=== PATIENT | male | born 1995 | race Two or more races ===

== ENCOUNTER 2022-03-12 06:33 | Emergency (ER) | payer OTHER, SELFPAY ==
--- NOTE | ~2022-03-12 | XR_ITS ---
EXAMINATION: XR SHOULDER, RIGHT CLINICAL INFORMATION: Fracture, dislocation COMPARISON: None TECHNIQUE: Three views of the right shoulder. FINDINGS: The humeral head is well positioned over the intact glenoid. Glenohumeral joint space is normal. No arthritic deformity, fracture or subluxation. Acromioclavicular joint is normal. The subacromial space is normal. Scapula is unremarkable. No calcium deposition within rotator cuff tendons. The visualized portion of the right lung is normal. No evidence of rib fracture. XR/XR shoulder RT min 2V IMPRESSION: Normal right shoulder.
[2022-03-12 06:52] VITALS: BP 111/54; PULSE 79; RESP 16; TEMP 36.5; O2SAT 96; BMI 27.2
--- NOTE | 2022-03-12 07:10 | PC.NURSE ---
Addendum entered by Johann Thompson RN 03/12/22 07:22: pt reports that sometimes he feels the pain going down the back of his neck Original Note: pt reports 10/ R shoulder pain that kept him up most of the night. he said the pain started last night while lifting weights. he said 4 years ago his shoulder was dislocated while weight lifting but he did not seek medical attention, his friend popped it back in place. he denies any other pain/injury.
--- NOTE | 2022-03-12 07:54 | ED_ITS ---
HPI - Extremity Problem General Chief complaint: Extremity Injury, Upper <ALINA Gonzales Last Filed: 03/12/22 08:39> Stated complaint: shoulder pain <ALINA Gonzales Last Filed: 03/12/22 08:39> Time Seen by Provider: 03/12/22 07:47 <ALINA Gonzales Last Filed: 03/12/22 08:39> Source: patient <ALINA Gonzales Last Filed: 03/12/22 08:39> Mode of arrival: ambulatory <ALINA Gonzales Last Filed: 03/12/22 08:39> Limitations: no limitations <ALINA Gonzales Last Filed: 03/12/22 08:39> History of Present Illness HPI Narrative: 27 year old male with history of chronic right shoulder pains presents to the ER for acute on chronic pain after lifting weights. Patient reports 4 years ago he dislocated his shoulder and his friend put it back into place for him. Ever since then he has had issues with regaining full strength and range of motion. He was never evaluated by Physical therapy or Orthopedics. 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 He reports he was at the gym this morning when he was doing weightlifting he had some pain in his right shoulder. He can ordered and kept going. He reports that was low weights of 25 lb. When he got home he had worsening anterior shoulder pain, worse with palpation and movement. He reports movement in the hand and lower arm with sent pain to the shoulder. He denies any numbness, tingling or weakness. He has difficulty moving the arm at all. No chest pain or shortness of breath. <ALINA Gonzales - Last Filed: 03/12/22 08:39> MD Complaint: joint pain <ALINA Gonzales Last Filed: 03/12/22 08:39> Onset (ago): year(s) <ALINA Gonzales Last Filed: 03/12/22 08:39> Pain Consistency: intermittent <ALINA Gonzales Last Filed: 03/12/22 08:39> Location: right and upper extremity <ALINA Gonzales Last Filed: 03/12/22 08:39> Severity scale (1-10): 8 <ALINA Gonzales - Last Filed: 03/12/22 08:39> Quality: aching <ALINA Gonzales - Last Filed: 03/12/22 08:39> Radiation: distal <ALINA Gonzales - Last Filed: 03/12/22 08:39> Relieving factors: immobilization and rest <ALINA Gonzales - Last Filed: 03/12/22 08:39> Exacerbating factors: range of motion and palpation <ALINA Gonzales - Last Filed: 03/12/22 08:39> Associated symptoms: denies other symptoms <ALINA Gonzales - Last Filed: 03/12/22 08:39> Related Data Home medications: Previous Rx's Medication Instructions Recorded ibuprofen 600 mg tablet 600 mg PO Q8H PRN pain #20 tabs 03/12/22 <ALINA Gonzales - Last Filed: 03/12/22 08:39> Allergies/Adverse reactions: Allergies Allergy/AdvReac Type Severity Reaction Status Date / Time No Known Allergies Allergy Verified 03/12/22 06:58 <ALINA Gonzales - Last Filed: 03/12/22 08:39> Review of Systems Review of Systems: Yes all other systems are reviewed and are negative <ALINA Gonzales - Last Filed: 03/12/22 08:39> Physical Exam Vital Signs: Vital Signs: Last Vital Signs Temp 97.7 F 03/12/22 06:52 Pulse 67 03/12/22 08:10 Resp 16 03/12/22 06:52 BP 128/77 03/12/22 08:10 Pulse Ox 96 03/12/22 08:10 O2 Del Method 03/12/22 08:10 BMI result Body Mass Index 27.2 <ALINA Gonzales - Last Filed: 03/12/22 08:39> Vital Signs: Last Vital Signs Temp 97.7 F 03/12/22 06:52 Pulse 67 03/12/22 08:10 Resp 16 03/12/22 06:52 BP 128/77 03/12/22 08:10 Pulse Ox 96 03/12/22 08:10 O2 Del Method 03/12/22 08:10 BMI result Body Mass Index 27.2 <Redd Peck MD - Last Filed: 03/12/22 15:46> Appearance: Alert. Oriented X3. No acute distress. HEENT: normal inspection CVS: Normal heart rate and rhythm. Pulses normal. Respiratory: No respiratory distress. Skin: Skin warm and dry. Normal skin color. Normal skin turgor. No rashes. Extremities: right arm held in flexion and adduction, tenderness of the anterior shoulder. pain with abduction to 90 degrees both laterally and forward, positive empty can test. minimal posterior tenderness. Neuro: Oriented X 3. No motor deficit. No sensory deficit. 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 <ALINA Gonzlaes - Last Filed: 03/12/22 08:39> Course Course Course Narrative: 27-year-old male with history of shoulder dislocation in the past presents to the ER for evaluation of acute on chronic right-sided shoulder pain in the setting of lifting weights. X-ray today is normal. Exam is concerning for possible rotator cuff injury. Will placed in sling and have him follow-up with orthopedics. Will start ice and anti-inflammatories, rest. He will call orthopedics for further evaluation. <ALINA Gonzales - Last Filed: 03/12/22 08:39> Medical Decision Making Differential Diagnosis Differential Diagnoses: The differential diagnosis associated with the presentation includes <ALINA Gonzales - Last Filed: 03/12/22 08:39> Tendinitis, arthritis, rotator cuff injury, AC joint separation, muscle strain, muscle spasm, less likely dislocation, neuropathy <ALINA Gonzales - Last Filed: 03/12/22 08:39> Independent Interpretation I performed an independent interpretation of an: Plain X-Ray <ALINA Gonzales - Last Filed: 03/12/22 08:39> Interpretation: normal appearing shoulder <ALINA Gonzales Last Filed: 03/12/22 08:39> Radiology Impression Discussion of test interpretation with radiology: I have reviewed the radiologist's reading. <ALINA Gonzales Last Filed: 03/12/22 08:39> Radiologist Impression: IMPRESSION: Normal right shoulder. <ALINA Gonzales Last Filed: 03/12/22 08:39> Prescription Management I considered prescription management with: Pain Medication <ALINA Gonzales - Last Filed: 03/12/22 08:39> Attestation Attending Attestation: 27-year-old male presents for evaluation. I reviewed the PA note. Agree with assessment and plan as well as documentation. <Redd Peck MD - Last Filed: 03/12/22 15:46> Critical Care Time Critical Care Time Critical Care Time: No <ALINA Gonzales - Last Filed: 03/12/22 08:39> Discharge Plan Discharge Clinical Impression: Chronic shoulder pain <ALINA Gonzales - Last Filed: 03/12/22 08:39> Patient Disposition: Home, Self-Care <ALINA Gonzales - Last Filed: 03/12/22 08:39> Instructions: Shoulder Pain (ED) <ALINA Gonzales - Last Filed: 03/12/22 08:39> Additional Instructions: Your x-ray today was normal. Recommend wearing the sling for the next 2-3 days. Use ice and take the prescribed anti-inflammatory pain medication as directed. Rest. No heavy lifting. Follow up with Orthopedics for further evaluation and treatment. If you develop new or worsening symptoms call 911 or come back to the ER for further evaluation. <ALINA Gonzales - Last Filed: 03/12/22 08:39> Prescriptions: New ibuprofen 600 mg tablet 600 mg PO Q8H PRN (Reason: pain) Qty: 20 0RF <ALINA Gonzales - Last Filed: 03/12/22 08:39> Referrals: [facility] [Provider Group] <ALINA Gonzales - Last Filed: 03/12/22 08:39> Interventions: ED Discharge Assessment Last Done: 03/12/22 08:19 <ALINA Gonzales Last Filed: 03/12/22 08:39> Discharge Date/Time: 03/12/22 08:20 <ALINA Gonzales Last Filed: 03/12/22 08:39>
[2022-03-12 08:10] VITALS: BP 128/77; PULSE 67; O2SAT 96
--- NOTE | 2022-03-12 08:11 | PC.NURSE ---
pt cleared for discharge. sling applied, vss.
== END 2022-03-12 08:20 | disposition home or self-care (01) ==
PROVIDERS: Emergency Provider Emergency Medicine
DX: M25.511 Pain in right shoulder (principal)
CPT/HCPCS: 73030; 99283; 99284

== ENCOUNTER → 2022-03-22 14:28 | Outpatient (BNVA) | payer OTHER, SELFPAY | PROVIDERS: Visit Provider Physician Assistant | DX: M25.311 Other instability, right shoulder (principal) | CPT/HCPCS: 99202 ==

== ENCOUNTER 2022-04-09 14:22 | Outpatient (REF) | payer OTHER, SELFPAY ==
--- NOTE | ~2022-04-09 | FL_ITS ---
EXAMINATION: XR ARTHROGRAM SHOULDER, RIGHT CLINICAL INFORMATION: Right shoulder trauma. Instability. Pre-MRI arthrogram. COMPARISON: Previous right shoulder x-ray 02/2022. TECHNIQUE: Procedure and risks and benefits including bleeding and infection were discussed with the patient and informed consent was obtained. Right anterior shoulder was prepped and draped in the usual sterile fashion. The skin and soft tissues were anesthetized with 1% lidocaine plain. Using fluoroscopic guidance and a 22-gauge spinal needle, access to the right shoulder joint was obtained. 1 to 2 mL of Omnipaque 300 was injected fluoroscopically confirming adequate placement in the joint space. Subsequently, a mixture of dilute gadolinium was injected into the joint space pre-MRI. FINDINGS: There are no fractures or dislocations. No joint effusion is identified. No bone, joint or soft tissue abnormality is demonstrated. FLUOROSCOPY TIME: 0.1 minute. DOSE AREA PRODUCT: 0.5 rader per centimeter squared. One saved fluoroscopic image. FL/FL arthrogram shoulder RT IMPRESSION: Pre-MRI right shoulder arthrogram.
--- NOTE | ~2022-04-09 | MR_ITS ---
EXAMINATION: MR SHOULDER WITH CONTRAST, RIGHT CLINICAL INFORMATION: Right shoulder pain and decreased range of motion. Instability. COMPARISON: Right shoulder radiographs dated 03/12/2022 and fluoroscopic arthrography done earlier the same day. TECHNIQUE: MRI of the shoulder was performed following the intra-articular administration of a dilute gadolinium-containing solution (arthrogram) on a high-field scanner. FINDINGS: ROTATOR CUFF: Intact. No contrast extending into the intrasubstance to suggest articular surface tearing. No muscle atrophy or fatty infiltration. BICEPS: Intact. CORACOACROMIAL ARCH: The undersurface of the acromion is flat with no subacromial spur. Tiny acromioclavicular marginal osteophytes with a trace joint effusion. LABRUM/CAPSULE: Shallow, linear fluid signal within the undersurface of the anterior and anteroinferior labrum, consistent with nondisplaced undersurface tearing. GLENOHUMERAL JOINT/MARROW: Intact articular cartilage. Humeral head well seated within the glenoid. Cortical depression at the posterolateral aspect of the humeral head measuring up to 2.9 cm in AP dimension. No associated marrow edema. Findings are consistent with a chronic Hill-Sachs deformity. MR/MR shoulder RT w con IMPRESSION: Chronic Hill-Sachs deformity at the posterolateral aspect of the humeral head measuring up to 2.9 cm in AP dimension. No associated marrow edema. Humeral head currently well-seated within the glenoid. Findings are consistent with a remote anteroinferior humeral head dislocation. Nondisplaced undersurface tearing of the anterior and anteroinferior labrum. No rotator cuff tendon tear. Minimal acromioclavicular osteoarthritis and trace joint effusion.
== END 2022-04-09 14:23 | disposition home or self-care (01) ==
LOC: HO.XRAY 14:22
PROVIDERS: Visit Provider Physician Assistant
DX: M25.311 Other instability, right shoulder (principal)
CPT/HCPCS: 23350; 73040; 73222

== ENCOUNTER 2022-04-15 13:07 | Outpatient (RCR) | payer OTHER, SELFPAY ==
--- NOTE | 2022-04-15 14:48 | MHC.PT.EP ---
[facility] [place] [facility] [place] [facility] [place] [facility] [address] [phone] F: [phone] F: [phone] F: [phone] F: [phone] Physical Therapy Plan of Care Date of Evaluation: Date of Surgery: NA Diagnosis: RIGHT SHOULDER INSTABILIRTY Assessment: CONNER IS A 27 YO MALE, CURRENTLY UNEMPLOYED, WHO PRESENTS WITH C/O CHRONIC SHOULDER PAIN AND INSTABILITY. UPON EXAM HE DEMONSTRATES DECREASED ARROM, DECREASED GH STRENGTH, ALTERED POSTURE AND POSITIONING OF NECK AND SHOULDER JONT, INCREASED UPPER TRAP COMPENSATION, INCREASED PAIN. FUNCTIONAL LIMITATIONS INCLUDE DECREASED ABILITY TO PERFORM PUSHING AND PULLING, DECREASED ABILITY TO LIFT AND WORK OUT AT GYM, HE HAS DIFFICULTY THROWING A BALL. REPORTS DECREASED PARTICIPATION IN FITNESS AND REREATIONAL ACTIVITIES AND DISRUPTED SLEEP. Frequency and Duration: The patient will be seen 2 X WEEK FOR 4 WEEKS Short Term Goals: INITIATE HEP AND PROMOTE SELF MANAGEMENT OF SYMPTOMS Brace [employer] [place] Former Goals: FULL, PAIN FREE ROM FULL UE STRENGTH, PAIN FREE TO RETURN TO GYM PROGRAM WITHOUT RESTRICTION AND PAIN NO GREATER THAN 2/[address] OBJECT AT MINIMUM OF 10# INTO CABINET AT SHOULDER HEIGHT Treatment Plan: Modalities to reduce pain, spasms and effusion. Manual therapy to restore motion and function. Therapeutic exercise to improve strength and flexibility. Neuromuscular re-education for posture and balance. Therapeutic activities to return to functional activities of daily living. Electronically signed by: BRUCE BENNETT PT DPT Please sign and return to therapist. Thank you for your referral.
== END 2022-08-26 13:39 | disposition home or self-care (01) ==
LOC: HO.PT 13:07
PROVIDERS: Visit Provider Physician Assistant
DX: M25.311 Other instability, right shoulder (principal)
CPT/HCPCS: 97110; 97161

== ENCOUNTER 2022-08-01 17:16 | Emergency (ER) | payer OTHER, SELFPAY ==
--- NOTE | ~2022-08-01 | XR_ITS ---
EXAMINATION: Left ankle series. Left foot series. CLINICAL INFORMATION: Left foot pain COMPARISON: None. TECHNIQUE: 3 views of the left ankle. 3 views of the left foot FINDINGS: Left ankle and foot: The bones joints and soft tissues are normal. I do not see a fracture. No degenerative changes. Os trigonum incidentally noted XR/XR ankle LT min 3V IMPRESSION: Normal x-ray series of the left ankle and foot.
--- NOTE | ~2022-08-01 | XR_ITS ---
EXAMINATION: Left ankle series. Left foot series. CLINICAL INFORMATION: Left foot pain COMPARISON: None. TECHNIQUE: 3 views of the left ankle. 3 views of the left foot FINDINGS: Left ankle and foot: The bones joints and soft tissues are normal. I do not see a fracture. No degenerative changes. Os trigonum incidentally noted XR/XR foot LT 2V IMPRESSION: Normal x-ray series of the left ankle and foot.
[2022-08-01 17:17] VITALS: BP 111/92; PULSE 83; RESP 18; TEMP 36.7; O2SAT 99; BMI 28.0
--- NOTE | 2022-08-01 17:20 | ED.GENADULT ---
HPI - General Adult General Chief complaint: Extremity Problem Stated complaint: Left foot pain Time Seen by Provider: 08/01/22 21:16 Source: patient Mode of arrival: ambulatory Limitations: no limitations History of Present Illness HPI narrative: 27-year-old male healthy here with complaints of 3 days of left foot pain with no known injury or trauma. Patient reports he was working long hours on his feet and steel toe boots. Unfortunately he recently got let go from his job. He denies any associated numbness, weakness or tingling of the foot. No redness, warmth, fevers or chills. Related Data Previous Rx's Medication Instructions Recorded ibuprofen 600 mg tablet 600 mg PO Q8H PRN pain #20 tabs 03/12/22 ibuprofen 600 mg tablet 600 mg PO Q8H PRN pain #30 tabs 08/01/22 Allergies Allergy/AdvReac Type Severity Reaction Status Date / Time No Known Allergies Allergy Verified 03/22/22 14:50 Review of Systems Review of Systems: Yes all other systems are reviewed and are negative Constitutional: Constitutional: Reports no additional constitutional complaints, Denies body ache(s), Denies chills, Denies fever(s), Denies headache(s) and Denies weakness Eyes: Eyes: Reports no additional eye complaints and Denies change in vision ENT: Reports system reviewed and no additional complaints, except as documented, Denies dizziness, Denies headache(s), Denies nasal congestion, Denies nasal discharge and Denies neck pain Cardiovascular: Cardiovascular: Reports no additional cardiovascular complaints, Denies chest pain, Denies leg edema and Denies dyspnea Respiratory: Respiratory: Reports no additional respiratory complaints, Denies cough and Denies dyspnea Gastrointestinal: Gastrointestinal: Reports no additional gastrointestinal complaints, Denies abdominal pain, Denies diarrhea, Denies nausea and Denies vomiting Genitourinary: Genitourinary: Denies urinary incontinence Musculoskeletal: Musculoskeletal: Reports no additional musculoskeletal complaints, Denies back pain, Reports arthralgias, Denies joint swelling, Denies limited range of motion, Denies neck pain, Denies numbness and Denies tingling Integumentary/Breasts: Skin/Breast: Reports system reviewed and no additional complaints, except as docu and Denies rash Neurologic: Reports system reviewed and no additional complaints, except as documented, Denies dizziness, Denies headache(s), Denies numbness, Denies tingling and Denies weakness [facility] Past Medical History Attestation statement: The following information was validated with the patient. Source: old records reviewed and nursing notes reviewed Social History Social History (Updated 03/22/22 @ 14:51 by ARISTIDES Monk) Patient Tobacco Use Status: Current everyday Tobacco user Advance Directives: No Advance Directives Information Provided: No Current occupational status: unemployed Current occupation: right handed Physical Exam ED Vital Signs: Vital Signs - 24 hr 08/01/22 17:17 Temperature 98.0 F Pulse Rate 83 Respiratory Rate 18 Blood Pressure 111/92 H Pulse Oximetry 99 Oxygen Delivery Method Room Air BMI result Body Mass Index 28.0 Const General: cooperative, healthy appearing, comfortable and no acute distress Orientation/consciousness: patient oriented x3 Limitations: no limitations HENMT Head: Yes normal to inspection Ears: hearing grossly normal bilaterally Eyes General: appearance normal, both eyes and all related structures Pupils: Equal, round and reactive pupils present Neck Neck: Yes normal visual inspection Chest Chest palpation & inspection: normal inspection of the chest Resp Effort & Inspection: normal respiratory effort Cardio Peripheral pulses: Peripheral pulses 2+ throughout Skin General skin exam: no rashes or lesions noted Neuro General: patient oriented x3 and moves all extremities Cranial nerves: Yes Equal, round and reactive pupils present Cognition (Neuro): normal cognition Gait exam (Neuro): Normal gait present Extrem Other: There is some mild tenderness over the left dorsal foot over the distal aspect. There is no swelling or ecchymosis noted. There is no warmth, erythema noted. There are palpable DP and PT pulses. There is full range of motion of the ankle and the foot with no difficulty. Sensation is intact General: Yes normal to inspection Course Course Course Narrative: RmE: left foot pain without any trauma. patient denies any redness, swelling, leg swelling, calf pain, or fever,. left foot xray ordered Medical Decision Making Medical Decision Making [facility] Narrative: A 27-year-old male here with atraumatic left foot pain for 3 days. Patient had x-rays ordered from triage There is no signs of infection over the foot. There is no swelling. There is full range of motion. ? Overuse injury Recommend NSAIDs, supportive care at home and follow-up with primary care for any continued symptoms Differential Diagnosis Differential Diagnoses: The differential diagnosis associated with the presentation includes strain, fracture Independent Interpretation I performed an independent interpretation of an: Plain X-Ray Interpretation: I independently reviewed the x-ray and agree with radiologist report Radiology Impression Discussion of test interpretation with radiology: I have reviewed the radiologist's reading. Radiologist Impression: [address] [address] XRay Report Signed Patient: Cecil Corrigan MR#: [id number] : 1995 Acct:[id number] Age/Sex: 27 / M ADM Date: 08/01/22 Loc: HO.ED Attending Dr: Ordering Physician: Melecio Meza Date of Service: 08/01/22 Procedure(s): XR ankle LT min 3V Accession Number(s): [id number] cc: Melecio Meza~ EXAMINATION: Left ankle series. Left foot series. CLINICAL INFORMATION: Left foot pain COMPARISON: None. TECHNIQUE: 3 views of the left ankle. 3 views of the left foot FINDINGS: Left ankle and foot: The bones joints and soft tissues are normal. I do not see a fracture. No degenerative changes. Os trigonum incidentally noted XR/XR ankle LT min 3V IMPRESSION: Normal x-ray series of the left ankle and foot. ? Discharge Plan Discharge Clinical Impression: Muscle strain of left foot Patient Disposition: Home, Self-Care Instructions: Arthralgia (ED) Additional Instructions: Ice, elevation, rest Establish a primary care doctor Prescriptions: New ibuprofen 600 mg tablet 600 mg PO Q8H PRN (Reason: pain) Qty: 30 0RF No Action ibuprofen 600 mg tablet 600 mg PO Q8H PRN (Reason: pain) Qty: 20 0RF Interventions: ED Discharge Assessment Last Done: 08/01/22 21:48 Discharge Date/Time: 08/01/22 21:49
== END 2022-08-01 21:49 | disposition home or self-care (01) ==
PROVIDERS: Emergency Provider Internal Medicine
DX: M79.672 Pain in left foot (principal); M25.572 Pain in left ankle and joints of left foot
CPT/HCPCS: 73610; 73620; 99282; 99283; 99284

== ENCOUNTER 2022-11-05 12:01 | Emergency (ER) | payer OTHER, SELFPAY ==
[2022-11-05 12:39] VITALS: BP 100/48; PULSE 61; RESP 19; TEMP 36.5; O2SAT 99; BMI 27.1
--- NOTE | 2022-11-05 12:43 | ED_ITS ---
HPI - Animal Bite General Chief Complaint: Animal Bite Stated Complaint: left leg dog bite Time Seen by Provider: 11/05/22 13:26 Source: patient Mode of arrival: ambulatory Limitations: no limitations History of Present Illness HPI narrative: note already written and signed. Related Data Previous Rx's Medication Instructions Recorded ibuprofen 600 mg tablet 600 mg PO Q8H PRN pain #20 tabs 03/12/22 ibuprofen 600 mg tablet 600 mg PO Q8H PRN pain #30 tabs 08/01/22 amoxicillin 875 mg-potassium 1 tab PO Q12H 10 days #20 tabs 11/05/22 clavulanate 125 mg tablet Allergies Allergy/AdvReac Type Severity Reaction Status Date / Time No Known Allergies Allergy Verified 03/22/22 14:50 [facility] Social History Social History (Updated 03/22/22 @ 14:51 by Opal Oakley Crow) Patient Tobacco Use Status: Current everyday Tobacco user Advance Directives: No Advance Directives Information Provided: No Current occupational status: unemployed Current occupation: right handed Physical Exam ED Vital Signs: BMI result Body Mass Index 27.1 Course Course Course Narrative: This is a rapid medical exam: Additional HPI, ROS, PE not included below will be deferred to primary provider. Patient is a 27-year-old male presenting to the emergency department with dog bite to left lower leg. States he was bit by his own dog in [place] around 9pm last evening. States dog is UTD on vaccinations. Unsure of last tetanus vaccination. Reports mild pain to the area. Plan: [facility] Medications Administered Discontinued Medications Generic Name Dose Route Start Last Admin Trade Name Freq PRN Reason Stop Dose Admin Diphtheria/Tetanus/Acell Pertussis 0.5 ml 11/05/22 13:46 11/05/22 13:59 Diphth,Pertus(Acell),Tet Adult 0.5 Ml Syringe IM 11/05/22 13:47 0.5 ml .ONCE ONE Administration Discharge Plan Discharge Clinical Impression: Dog bite Patient Disposition: Home, Self-Care Instructions: Animal Bite (ED) Additional Instructions: return to the ED immediately for any redness, pain, ecchymosis, blue /discoloration, pus discharge, foul odor, fever, chills, or any other concerning symptoms. Please follow-up primary care provider. Prescriptions: New amoxicillin-pot clavulanate 875-125 mg tablet 1 tab PO Q12H 10 Days Qty: 20 0RF No Action ibuprofen 600 mg tablet 600 mg PO Q8H PRN (Reason: pain) Qty: 20 0RF ibuprofen 600 mg tablet 600 mg PO Q8H PRN (Reason: pain) Qty: 30 0RF Stand Alone Forms: Work/School Release Interventions: ED Discharge Assessment Last Done: 11/05/22 14:02 Discharge Date/Time: 11/05/22 14:06 Print Language: Setswana
--- NOTE | 2022-11-05 13:44 | ED_ITS ---
HPI - General Adult General Chief complaint: Animal Bite Stated complaint: left leg dog bite Time Seen by Provider: 11/05/22 13:26 Source: patient Mode of arrival: ambulatory Limitations: no limitations History of Present Illness HPI narrative: 27 yold male presents to the ED for left leg dog bite by his dog. patient states his dog was being introduced to a new dog and his dog became frightened and bit him by accident. patient states his dog is uptodate with rabies. patient denies any other trauma. Related Data Previous Rx's Medication Instructions Recorded ibuprofen 600 mg tablet 600 mg PO Q8H PRN pain #20 tabs 03/12/22 ibuprofen 600 mg tablet 600 mg PO Q8H PRN pain #30 tabs 08/01/22 amoxicillin 875 mg-potassium 1 tab PO Q12H 10 days #20 tabs 11/05/22 clavulanate 125 mg tablet Allergies Allergy/AdvReac Type Severity Reaction Status Date / Time No Known Allergies Allergy Verified 03/22/22 14:50 Review of Systems 2 Review of Systems: left lower leg dog bite Yes all other systems are reviewed and are negative [facility] Social History Social History (Updated 03/22/22 @ 14:51 by Opal Oakley Crow) Patient Tobacco Use Status: Current everyday Tobacco user Advance Directives: No Advance Directives Information Provided: No Current occupational status: unemployed Current occupation: right handed Physical Exam ED Vital Signs: Vital Signs - 24 hr 11/05/22 12:39 Temperature 97.7 F Pulse Rate 61 Respiratory Rate 19 Blood Pressure 100/48 L Pulse Oximetry 99 Oxygen Delivery Method Room Air BMI result Body Mass Index 27.1 Const General: cooperative, healthy appearing, comfortable, no acute distress, well developed, alert, awake and Physically active Orientation/consciousness: oriented to person, oriented to place, oriented to time and patient oriented x3 HENMT Head: Yes normal to inspection, Yes No palpable skull fracture present, Yes normocephalic, Yes atraumatic and No abrasion Eyes General: appearance normal, both eyes and all related structures Neck Neck: Yes normal visual inspection, Yes full ROM, Yes no lymphadenopathy, Yes no meningeal signs, Yes trachea midline, Yes supple, No anterior neck swelling and No tender Chest Chest palpation & inspection: normal inspection of the chest and normal palpation of entire chest wall Resp Effort & Inspection: normal respiratory effort and able to speak in complete sentences Cardio Jugular venous distension: no JVD Heart sounds: S1 normal heart sound present and S2 normal heart sound present GI Inspection: Yes normal to inspection and No abdominal wall ecchymosis Palpation (GI): Soft to palpation, not firm, nontender, no guarding and not rigid General: No CVA tenderness and Yes no CVA tenderness Back/Spine/Pelvis Back: no CVA tenderness, No CVA tenderness and No back tenderness Skin General skin exam: no rashes or lesions noted and elasticity normal Neuro General: oriented to person, oriented to place, oriented to time, patient oriented x3, gait normal, tone normal, moves all extremities, Normal light touch and pain sensation, no meningeal signs, no focal motor deficits, CN's II-XI intact bilaterally and normal sensation to monofilament Extrem General: Yes normal to inspection Upper/lower leg/hip images: 2 1. Positive for superficial abrasion laceration dog bite that does not need repair. Negative for active bleeding. Negative for ecchymosis. Patient has complete range of motion of left lower extremity. Motor/ neuro/vascular exam intact 2. Positive for superficial abrasion laceration dog bite that does not need repair. Negative for active bleeding. Negative for ecchymosis. Patient has complete range of motion of left lower extremity. Motor/ neuro/vascular exam intact Psych Appearance: grossly normal, well kempt and not disheveled Medications Administered Discontinued Medications Generic Name Dose Route Start Last Admin Trade Name Freq PRN Reason Stop Dose Admin Diphtheria/Tetanus/Acell Pertussis 0.5 ml 11/05/22 13:46 11/05/22 13:59 Diphth,Pertus(Acell),Tet Adult 0.5 Ml Syringe IM 11/05/22 13:47 0.5 ml .ONCE ONE Administration Medical Decision Making Medical Decision Making MDM Narrative: 27-year-old male presents to the ED for being bitten by dog left lower extremity. Patient states his dog is up-to-date with rabies. Patient unknown last tetanus shot. Patient denies any other trauma. Patient has normal gait negative for any numbness/ tingling of left lower extremity. Dog by wash. Tdap ordered. Patient discharged with antibiotics Differential Diagnosis Differential Diagnoses: The differential diagnosis associated with the presentation includes ( animal bite, cellulitis, puncture wound, arterial bleed,) Independent Historian Clinical information obtained from an independent historian. History obtained from or confirmed by: Spouse External Record Review External record reviewed: Other (Prior ED visit) Tests considered The following testing was considered but not selected: Xray Prescription Management I considered prescription management with: Pain Medication and Antibiotic Discharge Plan Discharge Clinical Impression: Dog bite Patient Disposition: Home, Self-Care Instructions: Animal Bite (ED) Additional Instructions: return to the ED immediately for any redness, pain, ecchymosis, blue /discoloration, pus discharge, foul odor, fever, chills, or any other concerning symptoms. Please follow-up primary care provider. Prescriptions: New amoxicillin-pot clavulanate 875-125 mg tablet 1 tab PO Q12H 10 Days Qty: 20 0RF No Action ibuprofen 600 mg tablet 600 mg PO Q8H PRN (Reason: pain) Qty: 20 0RF ibuprofen 600 mg tablet 600 mg PO Q8H PRN (Reason: pain) Qty: 30 0RF Stand Alone Forms: Work/School Release Interventions: ED Discharge Assessment Last Done: 11/05/22 14:02 Discharge Date/Time: 11/05/22 14:06 Print Language: [place]
[2022-11-05] MEDS: Diphth,Pertus(ACell),Tet Adult 0.5 ML SYRINGE IM (13:59)
== END 2022-11-05 14:06 | disposition home or self-care (01) ==
PROVIDERS: Emergency Provider Emergency Medicine Emergency Medical Services
DX: S81.852A Open bite, left lower leg, initial encounter (principal); W54.0XXA Bitten by dog, initial encounter; Y93.9 Activity, unspecified; Y92.9 Unspecified place or not applicable; Y99.9 Unspecified external cause status
CPT/HCPCS: 90471; 90715; 99282; 99284